=== PATIENT | female | born 1990 | race Caucasian/White ===

== ENCOUNTER 2021-01-16 00:32 | Emergency (ER) | payer OTHER ==
[~2021-01-16 00:32] MED LIST: NAPROXEN500 MG PO
== END 2021-01-16 05:11 | disposition left against medical advice (07) ==
LOC: FER 00:32
DX: S63.501A Unspecified sprain of right wrist, initial encounter (principal); Z53.8 Procedure and treatment not carried out for other reasons; W19.XXXA Unspecified fall, initial encounter; Y92.009 Unspecified place in unspecified non-institutional (private) residence as the place of occurrence of the external cause
CPT/HCPCS: 73110; 73130